=== PATIENT | male | born 1970 | race Caucasian/White ===

== ENCOUNTER → 2017-06-04 | Day surgery (SDC) | payer OTHER | LOC: MSO 08:54 | DX: K52.9 Noninfective gastroenteritis and colitis, unspecified (principal); I10 Essential (primary) hypertension; Z87.891 Personal history of nicotine dependence; G47.33 Obstructive sleep apnea (adult) (pediatric); F41.9 Anxiety disorder, unspecified; R51 Headache | CPT/HCPCS: 00810; A4649; J3010; J7120 ==

== ENCOUNTER → 2020-06-18 | Outpatient (CLI) | payer BC ==
[~2020-06-18] MED LIST: BUSPIRONE HCL7.5 MG PO; IMITREX 25MG TA25 MG; LISINOPRIL10 MG PO
== END ==
LOC: RAD 09:27
DX: N44.2 Benign cyst of testis (principal)

== ENCOUNTER → 2024-02-12 | Outpatient (CLI) | payer OTHER ==
[~2024-02-12] MED LIST changes: +Gadoterate 20 ML VIAL IV ONE; +NS 100 ML IV ONE
== END ==
LOC: RAD 07:21
DX: G44.84 Primary exertional headache (principal)
CPT/HCPCS: A9575